=== PATIENT | male | born 1980 | race Hispanic/Latino ===

== ENCOUNTER 2017-04-10 20:41 | Emergency (ER) | payer MEDICAID ==
[2017-04-10 21:20] LABS: APPEARANCE,URINE Cloudy (CLEAR); BILIRUBIN,URINE Negative (NEGATIVE); COLOR,URINE Yellow (YELLOW); GLUCOSE, URINE (UA) TRACE mg/dL (NEGATIVE); KETONES,URINE Trace mg/dL (NEGATIVE); LEUKOCYTE ESTERASE ,URINE Trace (NEGATIVE); NITRATE,URINE Negative (NEGATIVE); OCCULT BLOOD,URINE Negative (NEGATIVE); PH,URINE 6.5 (5.0-8.0); PROTEIN,URINE POS 2+ (NEGATIVE)
[2017-04-10] MEDS ORDERED: KETOROLAC TROMETHAMINE 60 MG/2 ML VIAL ONE (21:21)
[2017-04-10] MEDS ORDERED: ORPHENADRINE CITRATE 30 MG/ML ML ONE (21:21)
[2017-04-10 21:33] LABS: BACTERIA,URINE Few /HPF (None Seen); RBC,URINE None Seen /HPF (0-1)
== END 2017-04-10 21:54 | disposition home or self-care (01) ==
LOC: EDH 20:41
DX: M54.5 Low back pain (principal); R25.2 Cramp and spasm; I10 Essential (primary) hypertension; Z79.899 Other long term (current) drug therapy
CPT/HCPCS: 81001; 96372 ×2; 99284; J1885; J2360

== ENCOUNTER 2019-06-04 19:54 | Emergency (ER) | payer MEDICAID ==
[2019-06-04] MEDS ORDERED: SODIUM CHLORIDE 0.9% 1000ML 1,000 ML IV ONE (20:27)
[2019-06-04 20:58] LABS: BASOPHILS % (AUTO) 0.5 % (0.0-5.0); EOSINOPHILS % (AUTO) 2.4 % (0.0-8.0); HEMATOCRIT 43.5 % (42-54); LYMPHOCYTES % (AUTO) 36.4 % (21.0-51.0); MEAN CORPUSCULAR HEMOGLOBIN 27.8 pg (27.0-33.0); MEAN CORPUSCULAR HGB CONC 34.3 g/dL (32.0-36.0); MEAN CORPUSCULAR VOLUME 81.2 fL (79-99); MONOCYTES % (AUTO) 9.2 % (3.0-13.0); NEUTROPHILS % (AUTO) 50.8 % (40.0-77.0); PLATELET COUNT (AUTO) 221 K/uL (130-400); RED BLOOD CELL COUNT(AUTO) 5.36 MIL/uL (4.50-6.20); RED CELL DISTRIBUTION WIDTH 13.2 % (11.0-15.5); WHITE BLOOD COUNT (AUTO) 8.3 K/uL (4.8-10.8)
[2019-06-04 21:06] LABS: CREATININE 1.1 mg/dL (0.5-1.5); POTASSIUM 3.4 mmol/L (3.5-5.1)
== END 2019-06-04 22:19 | disposition home or self-care (01) ==
LOC: EDH 19:54
DX: E11.65 Type 2 diabetes mellitus with hyperglycemia (principal); N48.1 Balanitis; I10 Essential (primary) hypertension
CPT/HCPCS: 36415; 80048; 82948; 85025; 93005; 96360; 99284; J7030

== ENCOUNTER 2020-03-11 21:31 | Emergency (ER) | payer MEDICAID, OTHER ==
[2020-03-11 22:27] LABS: BASOPHILS % (AUTO) 0.4 % (0.0-5.0); EOSINOPHILS % (AUTO) 2.2 % (0.0-8.0); HEMATOCRIT 44.8 % (42-54); LYMPHOCYTES % (AUTO) 37.6 % (21.0-51.0); MEAN CORPUSCULAR HEMOGLOBIN 28.2 pg (27.0-33.0); MEAN CORPUSCULAR HGB CONC 33.9 g/dL (32.0-36.0); MEAN CORPUSCULAR VOLUME 83.1 fL (79-99); MONOCYTES % (AUTO) 8.7 % (3.0-13.0); NEUTROPHILS % (AUTO) 50.7 % (40.0-77.0); PLATELET COUNT (AUTO) 233 K/uL (130-400); RED BLOOD CELL COUNT(AUTO) 5.39 MIL/uL (4.50-6.20); RED CELL DISTRIBUTION WIDTH 12.8 % (11.0-15.5); WHITE BLOOD COUNT (AUTO) 8.3 K/uL (4.8-10.8)
[2020-03-11] MEDS ORDERED: NITROGLYCERIN 1GM/1 INCH PACKET TD ONE (22:39)
[2020-03-11 22:43] LABS: CREATININE 1.1 mg/dL (0.5-1.5); POTASSIUM 3.7 mmol/L (3.5-5.1)
[2020-03-11 22:44] LABS: PARTIAL THROMBOPLASTIN TIME 25.9 SEC (26.3-35.5); PROTHROMBIN TIME 10.8 SEC (9.6-11.6)
[2020-03-11 22:48] LABS: ALBUMIN 3.9 g/dL (3.5-5.0); BILIRUBIN,TOTAL 0.7 mg/dL (0.2-1.0); TOTAL PROTEIN, SERUM 8.3 g/dL (6.0-8.3)
[2020-03-11 22:50] LABS: APPEARANCE,URINE Clear (CLEAR); BILIRUBIN,URINE Negative (NEGATIVE); COLOR,URINE Yellow (YELLOW); GLUCOSE, URINE (UA) >=1000 mg/dL (NEGATIVE); KETONES,URINE Negative (NEGATIVE); LEUKOCYTE ESTERASE ,URINE Small (NEGATIVE); NITRATE,URINE Negative (NEGATIVE); OCCULT BLOOD,URINE Negative (NEGATIVE); PROTEIN,URINE POS 2+ mg/dL (NEGATIVE)
[2020-03-11] MEDS ORDERED: SODIUM CHLORIDE 0.9% 1000ML 1,000 ML IV ONE (23:37)
[2020-03-12 00:40] LABS: BACTERIA,URINE Few /HPF (None Seen); RBC,URINE 0-1 /HPF (0-1)
== END 2020-03-12 00:43 ==
LOC: EDH 21:31
DX: I16.9 Hypertensive crisis, unspecified (principal); I10 Essential (primary) hypertension; E11.65 Type 2 diabetes mellitus with hyperglycemia; Z91.14 Patient's other noncompliance with medication regimen; F43.10 Post-traumatic stress disorder, unspecified; F41.9 Anxiety disorder, unspecified
CPT/HCPCS: 36415; 71045; 80053; 81001; 82550; 84484; 85025; 85610; 85730; 87088; 93005; 96360; 99285; J7030

== ENCOUNTER 2024-04-12 00:58 | Emergency (ER) | payer BC ==
[~2024-04-12] VITALS: Ht 177.8 cm; Wt 113.4 kg
[~2024-04-12 00:58] MED LIST: ASPI-1005 PO; ATOR40TA69 PO; CLOP-31 PO; Isosorbide Mono 30MG Sr Tab PO; LOSA-417 PO; METO50TA9 PO
[2024-04-12] MEDS ORDERED: CACL 1GM SYG IVP ONE (00:59)
[2024-04-12 01:00] VITALS: BP 0/0; PULSE 0; RESP 0
--- NOTE | 2024-04-12 01:30 | NUR ---
see code blue sheet.
--- NOTE | 2024-04-12 01:35 | ERN ---
General Chief Complaint: CPR/Full Arrest Stated Complaint: CARDIOPULMONARY ARREST Time Seen by MD: 01:12 Source: EMS History of Present Illness Initial Comments PATIENT IS A 43-YEAR-OLD MALE BROUGHT IN IN CARDIAC ARREST. PER EMS PATIENT DID RECEIVED THREE EPINEPHRINE INJECTIONS VIA AROUND. PATIENT HAD BEEN IN CARDIAC ARREST FOR 30 MINUTES PRIOR TO ARRIVAL. Allergies: Coded Allergies: No Known Drug Allergies (Unverified Allergy, Unknown, 03/12/20) Home Meds Active Scripts Metoprolol Succinate (Toprol Xl) 50 Mg Tab.er.24h, 50 MG PO DAILY, #60 TAB Prov:ELIS DELATORRE [facility] 04/07/24 Losartan Potassium (Cozaar) 25 Mg Tablet, 25 MG PO DAILY, #60 TAB Prov:ELIS DELATORRE [facility] 04/07/24 [Isosorbide Kings 30MG Sr Tab] 30 MG TAB.ER.24H No Conflict Check, 30 MG PO DAILY, #60 TAB 0 Refills Prov:ELIS DELATORRE [facility] 04/07/24 Clopidogrel Bisulfate (Plavix) 75 Mg Tablet, 75 MG PO DAILY, #60 TAB Prov:ELIS DELATORRE [facility] 04/07/24 Atorvastatin Calcium (LIPITOR) 40 Mg Tablet, 40 MG PO HS, #60 TAB Prov:ELIS DELATORRE [facility] 04/07/24 Aspirin (ASPIRIN 81MG CHEW TAB) 81 Mg Tab.chew, 81 MG PO DAILY, #60 TAB.CHEW Prov:ELIS DELATORRE [facility] 04/07/24 Past Medical History Past Medical History: Diabetes-Type II, High Cholesterol, Hypertension Past Surgical History: None ROS Dictation UNABLE TO PERFORM DUE TO CARDIAC ARREST Physical Exam Physical Exam Dictation AND CARDIAC ARREST MDM MDM: DIFFERENTIAL DIAGNOSIS: CARDIAC ARREST, PATIENT IS BROUGHT IN CARDIAC ARREST RECEIVED FOUR EPINEPHRINE UR BUT UNFORTUNATELY PATIENT DID NOT REGAIN ROSC. DX & DISP Disposition: Departure Impression: Primary Impression: Cardiac arrest Condition: Referrals: SELF,REFERRAL (PCP) Time of Disposition: 01:35 LOUISA PAGAN MD Apr 12, 2024 01:35
--- NOTE | 2024-04-12 02:42 | NUR ---
Mother Genesis Ch [phone]
--- NOTE | 2024-04-12 03:10 | NUR ---
Entered room to speak to family, ET tube found on patients chest. Mother crying, holding on to patient.
--- NOTE | 2024-04-12 03:14 | NUR ---
Sister Hayley Hawkins [phone]
== END 2024-04-12 01:13 ==
LOC: EDH 00:58
DX: I46.9 Cardiac arrest, cause unspecified (principal); E11.9 Type 2 diabetes mellitus without complications; E78.00 Pure hypercholesterolemia, unspecified; I10 Essential (primary) hypertension; Z79.02 Long term (current) use of antithrombotics/antiplatelets; Z79.82 Long term (current) use of aspirin; Z79.899 Other long term (current) drug therapy
CPT/HCPCS: 99285; 92950; 31500; J0171; J3490 ×2